=== PATIENT | female | born 1995 | race African-American/Black ===

== ENCOUNTER 2017-03-03 14:06 | Emergency (ER) | payer MEDICAID, OTHER ==
[~2017-03-03] VITALS: Ht 157.5 cm; Wt 69.0 kg
[2017-03-03] MEDS ORDERED: IBUPROFEN 600MG TABLET PO ONE (15:30)
[2017-03-03 15:49] VITALS: BP 122/71
== END 2017-03-03 16:04 | disposition home or self-care (01) ==
LOC: ER 15:29
DX: K42.9 Umbilical hernia without obstruction or gangrene (principal)
CPT/HCPCS: 99282

== ENCOUNTER 2019-02-04 08:33 | Emergency (ER) | payer MEDICAID, OTHER ==
[~2019-02-04] VITALS: Ht 162.6 cm; Wt 65.0 kg
[2019-02-04] MEDS ORDERED: ACETAMINOPHEN 325MG TABLET PO ONE (09:00)
[2019-02-04 11:15] VITALS: BP 138/67
== END 2019-02-04 11:16 | disposition home or self-care (01) ==
LOC: ER 08:33
DX: O26.892 Other specified pregnancy related conditions, second trimester (principal); M79.18 Myalgia, other site; Z3A.16 16 weeks gestation of pregnancy; Z87.440 Personal history of urinary (tract) infections; Z87.09 Personal history of other diseases of the respiratory system
CPT/HCPCS: 73552; 99283

== ENCOUNTER 2020-05-24 01:42 | Observation (INO) | payer MEDICAID ==
[~2020-05-24] VITALS: Ht 157.5 cm; Wt 73.9 kg
[2020-05-24] MEDS ORDERED: PNV1TABL76 PO (02:56)
[2020-05-24] MEDS ORDERED: LACTATED RINGERS 1,000 ML IV SCH (03:18)
[2020-05-24] MEDS ORDERED: ACETAMINOPHEN 500MG TABLET PO SCH (03:30)
[2020-05-24 04:21] LABS: CLARITY URINE CLEAR (CLEAR); COLOR URINE YELLOW (YELLOW); KETONES URINE NEGATIVE (NEGATIVE); LEUKOCYTE ESTERASE URINE NEGATIVE (NEGATIVE); NITRITE URINE NEGATIVE (NEGATIVE); OCCULT BLOOD URINE NEGATIVE (NEGATIVE); PROTEIN URINE NEGATIVE (NEGATIVE); SPECIFIC GRAVITY URINE 1.019 (1.005-1.030)
== END 2020-05-24 05:30 | disposition home or self-care (01) ==
LOC: 8 EST LDRP 01:42
PROVIDERS: ADMIT Obstetrics & Gynecology; ATTEND Obstetrics & Gynecology
DX: O21.2 Late vomiting of pregnancy (principal); O36.8120 Decreased fetal movements, second trimester, not applicable or unspecified; O62.9 Abnormality of forces of labor, unspecified; O26.892 Other specified pregnancy related conditions, second trimester; R51 Headache; R10.30 Lower abdominal pain, unspecified; R10.2 Pelvic and perineal pain; Z3A.28 28 weeks gestation of pregnancy
CPT/HCPCS: 59025; 81003; 96360; 96361; G0378; 99281